=== PATIENT | male | born 1975 | race Two or more races ===

== ENCOUNTER → 2020-01-16 | Emergency (ER) | payer BC ==
[~2020-01-16] VITALS: Ht 167.6 cm; Wt 81.6 kg
[~2020-01-16] MED LIST: ALBUTEROL SULF8.5 GM INH; ALPRAZOLAM0.25 MG PO; FLEXERIL10 MG ORAL; IBUPROFEN400 MG ORAL; KLONOPIN0.5 MG ORAL; MUCINEX1200 MG PO; NARDIL15 MG PO; NASONEX17 GM NASAL; PREDNISONE20 MG ORAL; SINGULAIR10 MG ORAL; VICODIN 5-5001 EACH PO; ZYRTEC10 MG ORAL; [UNRECOGNIZED DRUG - OTHER]
[2020-01-16 14:10] VITALS: BP 144/80
--- NOTE | 2020-01-16 14:10 | NUR ---
ED Nurse Note: Pt ambulated to ed c/o flu like smyptom; runny nose, sneezing, feverish, nasal congestion. denies travel. since wednesday. Placed on bed; VSS, afebrile on triage.
--- NOTE | 2020-01-16 14:23 | Emergency Room Report ---
History of Present Illness General Chief Complaint: Flu Like Symptoms Source: Patient Present Illness HPI 44-year-old male presents to the emergency department complaining of severe nasal congestion bilaterally with tearing of both eyes, redness in both eyes, sneezing and facial pressure x5 days. Patient reports feeling feverish when his symptoms first began however he states he no longer does. He reports he has a history of asthma denies cough, shortness of breath or wheezing. Patient denies sore throat. Patient denies history of environmental allergies. He denies itching of the face or eyes. Patient denies scratching sensation inside of the eye. Patient denies discharge from the eyes. Patient states he did feel better after taking NyQuil 2 nights ago however upon awakening in the morning his symptoms return. He states he has not taken any medication since. No other aggravating or relieving factors at this time. Patient does have a history of depression and takes a MAOI. He denies pain at this time. Denies JEAN BAPTISTE or visual changes. Denies loss of vision. He denies recent travel or contact with persons who have tested positive for or are under investigation for COVID- 19 Allergies: Coded Allergies: No Known Allergies (Unverified , 10/09/12) Patient History Past Medical History: see triage record Past Surgical History: none Pertinent Family History: none Reviewed Nursing Documentation: PMH: Agreed; PSxH: Agreed Nursing Documentation-PMH Past Medical History: No History, Except For Hx Asthma: Yes Hx Gastrointestinal Problems: Yes - URINARY RETENTION Review of Systems All Other Systems: negative except mentioned in HPI Physical Exam Vital Signs Date Time Temp Pulse Resp B/P (MAP) Pulse Ox O2 Delivery O2 Flow Rate FiO2 01/16/20 14:05 98.8 81 13 144/80 (101) 98 Room Air Sp02 EP Interpretation: reviewed, normal General Appearance: no apparent distress, alert, GCS 15, non-toxic Head: normocephalic, atraumatic Eyes: bilateral eye normal inspection, bilateral eye PERRL, bilateral eye other - bilateral increased lacrimation and conjunctival erythema, no pus, no photophobia. ENT: hearing grossly normal, normal voice, TMs + canals normal, uvula midline, moist mucus membranes, nasal congestion - nares not patent. clear rhinorrhea, pharyngeal erythema, other - no exudates, cobble stoning Neck: full range of motion Respiratory: chest non-tender, lungs clear, normal breath sounds, no respiratory distress, no wheezing, speaking full sentences Cardiovascular #1: regular rate, rhythm, normal capillary refill Musculoskeletal: normal range of motion, gait/station normal, non-tender Neurologic: alert, motor strength/tone normal, oriented x3, sensory intact, responsive, speech normal Psychiatric: judgement/insight normal Skin: no rash, normal color Lymphatic: no adenopathy Medical Decision Making PA Attestation Dr. España Is my supervising Physician whom patient management has been discussed with. Diagnostic Impression: Primary Impression: Sinusitis Qualified Codes: J01.10 - Acute frontal sinusitis, unspecified Additional Impression: Viral conjunctivitis of both eyes ER Course 44-year-old male presents to the emergency department complaining of severe nasal congestion bilaterally with tearing of both eyes, redness in both eyes, sneezing and facial pressure x5 days. Patient reports feeling feverish when his symptoms first began however he states he no longer does. He reports he has a history of asthma denies cough, shortness of breath or wheezing. Patient denies sore throat. Patient denies history of environmental allergies. He denies itching of the face or eyes. Patient denies scratching sensation inside of the eye. Patient denies discharge from the eyes. Patient states he did feel better after taking NyQuil 2 nights ago however upon awakening in the morning his symptoms return. He states he has not taken any medication since. No other aggravating or relieving factors at this time. Patient does have a history of depression and takes a MAOI. He denies pain at this time. Denies JEAN BAPTISTE or visual changes. Denies loss of vision. He denies recent travel or contact with persons who have tested positive for or are under investigation for COVID- 19 Ddx considered but are not limited to: sinusitis, bacterial conjunctivitis, Rhinitis, pharyngitis, strep, IMPROVEMENT ANALYST, ludwigs angina, URI Vital signs: are WNL, pt. is afebrile H&PE are most consistent with: Sinusitis with symptoms less than 10 days. -- not a candidate for antibiotics rx per MIPS. Pt. also with viral conjunctivitis bilat. ORDERS: None required at this time as the diagnosis is clinical ED INTERVENTIONS: none required at this time. DISCHARGE: At this time pt. is stable for d/c to home. Will provide printed patient care instructions, and any necessary prescriptions. Care plan and follow up instructions have been discussed with the patient prior to discharge. Last Vital Signs Date Time Temp Pulse Resp B/P (MAP) Pulse Ox O2 Delivery O2 Flow Rate FiO2 01/16/20 14:05 98.8 81 13 144/80 (101) 98 Room Air Disposition: HOME, SELF-CARE Condition: Stable Scripts Mometasone Furoate (NASONEX) 17 Gm [place].pump 2 SPRAYS NASAL DAILY, #17 GM 0 Refills Prov: Monique Souza 01/16/20 Ibuprofen* (MOTRIN*) 400 Mg Tablet 400 MG ORAL THREE TIMES A DAY, #30 TAB 0 Refills Prov: Monique Souza 01/16/20 Guaifenesin (Mucinex) 1,200 Mg Tab.er.12h 1200 MG PO Q12HR, #20 TAB Prov: Monique Souza 01/16/20 Cetirizine Hcl* (ZYRTEC*) 10 Mg Tablet 10 MG ORAL DAILY for 10 Days, #30 TAB 0 Refills Prov: Monique Souza 01/16/20 Departure Forms: Return to School, Return to School On: Jan 22, 2020 School Release Restrictions: None Other School Release Restrictions: May return Sooner if Symptoms have resolved. Return to Full Activity: Jan 22, 2020 Return to Work Return to Work Date: Jan 20, 2020 Work Restrictions: None Other Restrictions: May return Sooner if Symptoms have resolved. Return to Full Activity: Jan 20, 2020 Patient Instructions: Sinusitis, Adult, [id number], Viral Conjunctivitis Additional Instructions: Take medications as directed. Follow up with a Primary Care Provider in 3-5 days, even if your symptoms have resolved. --Please review list of primary care clinics, if you do not already have a primary care provider Return sooner to ED if new symptoms occur, or current symptoms become worse. - Please note that this Emergency Department Report was dictated using OOYYO[employer] needs teacher technology software, occasionally this can lead to erroneous entry secondary to interpretation by the dictation equipment. Monique Souza Jan 16, 2020 14:23
--- NOTE | 2020-01-16 14:29 | NUR ---
ED Nurse Note: ERPA at bedside.
--- NOTE | 2020-01-16 14:59 | NUR ---
Note [email or web address] in EDM - 01/16/20 at 1621 by KATIA ER DISCHARGE NOTE: Patient is cleared to be discharged per ERMD, pt is aox4, on room air, with stable vital signs. pt was given dc and prescription instructions, pt was able to verbalize understanding, pt id band removed. pt is able to ambulate with steady gait. pt took all belongings.
[2020-01-16 15:04] VITALS: BP 142/81
--- NOTE | 2020-01-16 15:04 | NUR ---
ER DISCHARGE NOTE: Patient is cleared to be discharged per ERPA, pt is aox4, on room air, with stable vital signs. pt was given dc and prescription instructions, pt was able to verbalize understanding, pt id band removed. pt is able to ambulate with steady gait. pt took all belongings.
== END | disposition home or self-care (01) ==
LOC: EMR 16:18
DX: J01.10 Acute frontal sinusitis, unspecified (principal); B30.9 Viral conjunctivitis, unspecified
CPT/HCPCS: 99282

== ENCOUNTER 2020-05-26 21:39 | Emergency (ER) | payer BC ==
[~2020-05-26] VITALS: Ht 167.6 cm; Wt 81.6 kg
[2020-05-26] MEDS ORDERED: Ketorolac 30mg Inj IV ONE (22:00)
[2020-05-26] MEDS ORDERED: Omnipaque-300 100ml vial INJ PRN (22:00)
[2020-05-26 22:10] VITALS: BP 148/86
[2020-05-26] MEDS ORDERED: Simethicone 80mg tab ORAL ONE (22:15)
[2020-05-26 22:32] LABS: APPEARANCE,URINE CLEAR; BILIRUBIN, URINE NEGATIVE (NEGATIVE); COLOR,URINE PALE YELLOW; GLUCOSE, URINE (UA) NEGATIVE (NEGATIVE); KETONES,URINE NEGATIVE (NEGATIVE); LEUKOCYTE ESTERASE ,URINE 1+ (NEGATIVE); NITRITE,URINE NEGATIVE (NEGATIVE); PH,URINE 7 (4.5-8.0); PROTEIN,URINE NEGATIVE (NEGATIVE); UROBILINOGEN,URINE NORMAL MG/DL (0.0-1.0)
[2020-05-26 22:32] LABS: BASOPHILS % (AUTO) 1.2 % (0.0-2.0); EOSINOPHILS % (AUTO) 4.8 % (0.0-3.0); HEMATOCRIT 48.2 % (42.0-52.0); LYMPHOCYTES % (AUTO) 35.9 % (20.0-45.0); MEAN CORPUSCULAR VOLUME 94 FL (80-99); MONOCYTES % (AUTO) 7.7 % (1.0-10.0); NEUTROPHILS % (AUTO) 50.3 % (45.0-75.0); PLATELET COUNT 282 K/UL (150-450); RED BLOOD COUNT 5.13 M/UL (4.70-6.10); RED CELL DISTRIBUTION WIDTH 12.4 % (11.6-14.8); WHITE BLOOD COUNT 7.9 K/UL (4.8-10.8)
[2020-05-26 22:43] LABS: ANION GAP 6 mmol/L (5-15); BLOOD UREA NITROGEN 16 mg/dL (7-18); CALCIUM 9.4 MG/DL (8.5-10.1); CARBON DIOXIDE 29 MMOL/L (21-32); CHLORIDE 105 MMOL/L (98-107); CREATININE 1.1 MG/DL (0.55-1.30); POTASSIUM 3.8 MMOL/L (3.5-5.1); SODIUM 140 MMOL/L (136-145)
[2020-05-26 22:49] LABS: ALANINE AMINOTRANSFERASE 54 U/L (12-78); ALBUMIN 4.2 G/DL (3.4-5.0); ALBUMIN/GLOBULIN RATIO 1.1 (1.0-2.7); ALKALINE PHOSPHATASE 90 U/L (46-116); ASPARTATE AMINO TRANSFERASE 26 U/L (15-37); BILIRUBIN,TOTAL 0.2 MG/DL (0.2-1.0)
[2020-05-26] MEDS ORDERED: ACETAMINOPHEN-1 EAC1 ORAL (23:24)
[2020-05-26 23:27] VITALS: BP 124/78
--- NOTE | 2020-05-27 00:58 | Emergency Room Report ---
History of Present Illness General Chief Complaint: Abdominal Pain Source: Patient Present Illness HPI 44-year-old male presents for evaluation of abdominal pain. States he feels bloated and having pain for the last 2 weeks. Dull, 8 out of 10, nonradiating. Also states that he has history of neurogenic bladder. States he self catheterizes. Concern for UTI. Denies fevers or chills. Denies flank pain. Denies nausea or vomiting. No other aggravating relieving factors. Denies any other associated symptoms Allergies: Coded Allergies: No Known Allergies (Unverified , 10/09/12) COVID-19 Screening Contact w/high risk pt: No Experienced COVID-19 symptoms?: No COVID-19 Testing performed SHOP TECHNICIAN: No Patient History Past Medical History: asthma, other - neurogenic bladder Past Surgical History: none Pertinent Family History: none Social History: Denies: smoking, alcohol use, drug use Immunizations: UTD Reviewed Nursing Documentation: PMH: Agreed; PSxH: Agreed Nursing Documentation-PMH Past Medical History: No History, Except For Hx Asthma: Yes Hx Gastrointestinal Problems: Yes - URINARY RETENTION Review of Systems All Other Systems: negative except mentioned in HPI Physical Exam Vital Signs Date Time Temp Pulse Resp B/P (MAP) Pulse Ox O2 Delivery O2 Flow Rate FiO2 05/26/20 21:52 99.0 86 18 179/110 (133) 96 Room Air Sp02 EP Interpretation: reviewed, normal General Appearance: no apparent distress, alert, GCS 15, non-toxic Head: normocephalic, atraumatic Eyes: bilateral eye normal inspection, bilateral eye PERRL ENT: hearing grossly normal, normal pharynx, no angioedema, normal voice Neck: full range of motion, supple/symm/no masses Respiratory: chest non-tender, lungs clear, normal breath sounds, speaking full sentences Cardiovascular #1: regular rate, rhythm, no edema Cardiovascular #2: 2+ carotid (R), 2+ carotid (L), 2+ radial (R), 2+ radial (L) , 2+ dorsalis pedis (R), 2+ dorsalis pedis (L) Gastrointestinal: normal bowel sounds, soft, non-distended, no guarding, no rebound, tenderness Rectal: deferred Genitourinary: normal inspection, no CVA tenderness Musculoskeletal: back normal, normal range of motion, gait/station normal, non- tender Neurologic: alert, motor strength/tone normal, oriented x3, sensory intact, responsive, speech normal Psychiatric: judgement/insight normal, memory normal, mood/affect normal, no suicidal/homicidal ideation Reflexes: 3+ bicep (R), 3+ bicep (L), 3+ tricep (R), 3+ tricep (L), 3+ knee (R) , 3+ knee (L) Skin: no rash Lymphatic: no adenopathy Medical Decision Making Diagnostic Impression: Primary Impression: Abdominal pain Qualified Codes: R10.84 - Generalized abdominal pain Additional Impression: Neurogenic bladder ER Course Hospital Course 44 yo M presents with abd pain differential diagnosis: gastritis, SBO, cholecystits Clinical course Patient placed on stretcher. On monitoring engineer. After initial history and physical I ordered labs, IV fluids, pepcid and simethicone Labs - no leukocytosis, no electrolyte abnormalities, LFTs normal, UA unremarkable CT ordered. Patient declined. Patient states that he has been having this bloating and abdominal pains for years now. Abdomen is soft. Discussed findings with patient. UA does not show evidence of UTI. Urine culture sent. States she will follow-up with PMD. Safe for discharge and close outpatient follow-up I feel this is a highly complex case requiring extensive working including EKG/ Rhythm strip, Xray/CT/US, Blood/urine lab work, repeat exams while in ED, and administration of strong opiates/narcotics for pain control, admission to hospital or close patient follow up. Diagnosis - abdominal pain, neurogenic bladder Stable and discharged to home. Followup with PMD. Return to ED if symptoms recur or worsen Laboratory Tests Test 05/26/20 22:15 05/26/20 22:20 Urine Color Pale yellow Urine Appearance Clear Urine pH 7 (4.5-8.0) Urine Specific Dora 1.010 (1.005-1.035) Urine Protein Negative (NEGATIVE) Urine Glucose (UA) Negative (NEGATIVE) Urine Ketones Negative (NEGATIVE) Urine Blood Negative (NEGATIVE) Urine Nitrite Negative (NEGATIVE) Urine Bilirubin Negative (NEGATIVE) Urine Urobilinogen Normal MG/DL (0.0-1.0) Urine Leukocyte Esterase 1+ (NEGATIVE) H Urine RBC 0 /HPF (0 - 0) Urine WBC 2-4 /HPF (0 - 0) Urine Squamous Epithelial Cells Occasional /LPF Urine Bacteria Few /HPF (NONE) Urine Mucus Few /LPF (NONE/OCC) H White Blood Count 7.9 K/UL (4.8-10.8) Red Blood Count 5.13 M/UL (4.70-6.10) Hemoglobin 16.0 G/DL (14.2-18.0) Hematocrit 48.2 % (42.0-52.0) Mean Corpuscular Volume 94 FL (80-99) Mean Corpuscular Hemoglobin 31.2 PG (27.0-31.0) H Mean Corpuscular Hemoglobin Concent 33.2 G/DL (32.0-36.0) Red Cell Distribution Width 12.4 % (11.6-14.8) Platelet Count 282 K/UL (150-450) Mean Platelet Volume 7.0 FL (6.5-10.1) Neutrophils (%) (Auto) 50.3 % (45.0-75.0) Lymphocytes (%) (Auto) 35.9 % (20.0-45.0) Monocytes (%) (Auto) 7.7 % (1.0-10.0) Eosinophils (%) (Auto) 4.8 % (0.0-3.0) H Basophils (%) (Auto) 1.2 % (0.0-2.0) Sodium Level 140 MMOL/L (136-145) Potassium Level 3.8 MMOL/L (3.5-5.1) Chloride Level 105 MMOL/L (98-107) Carbon Dioxide Level 29 MMOL/L (21-32) Anion Gap 6 mmol/L (5-15) Blood Urea Nitrogen 16 mg/dL (7-18) Creatinine 1.1 MG/DL (0.55-1.30) Estimat Glomerular Filtration Rate > 60 mL/min (>60) Glucose Level 103 MG/DL (74-106) Calcium Level 9.4 MG/DL (8.5-10.1) Total Bilirubin 0.2 MG/DL (0.2-1.0) Aspartate Amino Transf (AST/SGOT) 26 U/L (15-37) Alanine Aminotransferase (ALT/SGPT) 54 U/L (12-78) Alkaline Phosphatase 90 U/L (46-116) Total Protein 8.0 G/DL (6.4-8.2) Albumin 4.2 G/DL (3.4-5.0) Globulin 3.8 g/dL Albumin/Globulin Ratio 1.1 (1.0-2.7) Lipase 176 U/L (73-393) Last Vital Signs Date Time Temp Pulse Resp B/P (MAP) Pulse Ox O2 Delivery O2 Flow Rate FiO2 05/26/20 23:27 98.0 75 18 124/78 98 Room Air Status: improved Disposition: HOME, SELF-CARE Condition: Stable Scripts Acetaminophen With Codeine (T#3) (TYLENOL #3 TAB*) Y Tab 1 TAB ORAL Q8H PRN for For Pain, #12 TAB Prov: Jan Castle MD 05/26/20 Patient Instructions: Abdominal Pain, Adult Additional Instructions: urine culture sent. Jan Castle MD May 27, 2020 00:58
== END 2020-05-26 23:30 | disposition home or self-care (01) ==
LOC: EMR 22:11
DX: R10.84 Generalized abdominal pain (principal); N31.9 Neuromuscular dysfunction of bladder, unspecified
CPT/HCPCS: 36415; 80053; 81003; 83690; 85025; 87086; 93005; 96374; 96375; 99284; J2405; S0028